=== PATIENT | female | born 1980 | race Caucasian/White ===

== ENCOUNTER 2022-02-15 14:26 | Emergency (ER) | payer BC, SELFPAY ==
--- NOTE | ~2022-02-15 | XR_ITS ---
EXAMINATION: XR chest 2V Exam Date/Time: 02/15/2022 15:10 CDT HISTORY: SOB,STERNAL CP WORSE WITH INSPIRATION SINCE 02/09 Comparison: 10/19/2017. RESULT: Lines, tubes, and devices: None. Lungs and pleura: Clear. Cardiomediastinal silhouette: Stable cardiomediastinal silhouette. Other: No acute osseous or upper abdominal finding. IMPRESSION: No acute cardiopulmonary process. Reviewed, dictated and finalized at location K.
[2022-02-15 14:30] VITALS: BP 158/82; PULSE 88; RESP 14; TEMP 36.6; O2SAT 100
--- NOTE | 2022-02-15 14:33 | ECG_ITS ---
Measurements Intervals [place] Rate: 83 P: 61 NE: 153 QRS: 39 QRSD: 110 T: 61 QT: 375 QTc: 442 Interpretive Statements SINUS RHYTHM NORMAL ELECTROCARDIOGRAM NO PREVIOUS ECG AVAILABLE FOR COMPARISON Electronically Signed On 02-16-2022 7:09:05 CDT by Aston Jimenez M.D.
[2022-02-15 14:54] VITALS: PULSE 91
[2022-02-15 14:56] LABS: Alanine Aminotransferase 19 U/L (6-35); Albumin Level 4.2 g/dL (3.5-5.1); Alkaline Phosphatase 89 U/L (38-126); Anion Gap 5 mmol/L (8-16); Aspartate Amino Transferase 21 U/L (14-36); Bilirubin,Total 0.1 mg/dL (0.2-1.3); Blood Urea Nitrogen 14 mg/dL (7-17); Carbon Dioxide 26 mmol/L (22-30); Chloride 107 mmol/L (98-107); Estimated CRCL calculation 136 ml/min; Estimated Glomerular Filt Rate > 60; Glucose 100 mg/dL (65-110); Lipase 145 U/L (23-300); Potassium 4.1 mmol/L (3.4-5.0); Sodium 138 mmol/L (137-145)
[2022-02-15 14:57] LABS: Basophils Absolute Auto 0.1 K/mm3 (0.0-0.1); Basophils Percent Auto 0.6 % (0.2-1.2); Eosinophils Absolute Auto 0.1 K/mm3 (0-0.3); Eosinophils Percent Auto 1.2 % (0-4.4); Hematocrit 40.3 % (37.0-47.0); Hemoglobin 13.1 g/dL (12.0-15.0); Immature Granulocyte Absolute 0.01 K/mm3 (0.00-0.031); Immature Granulocyte Percent A 0.1 % (0-0.5); Lymphocytes Absolute Auto 1.53 K/mm3 (0.9-3.2); Lymphocytes Percent Auto 17.7 % (18.3-44.2); Mean Corpuscular HGB Conc 32.5 g/dl (32-36); Mean Corpuscular Hemoglobin 29.8 pg (26-34); Mean Corpuscular Volume 91.8 fl (80-100); Mean Platelet Volume 10.4 fl (7.4-10.4); Monocytes Absolute Auto 0.7 K/mm3 (0.1-0.6); Monocytes Percent Auto 8.1 % (2.6-8.5); Neutrophils Absolute Auto 6.2 K/mm3 (1.3-6.7); Neutrophils Percent Auto 72.3 % (45.5-73.1); Platelet Count Result 259 k/mm3 (150-375); Red Blood Count 4.39 M/mm3 (4.2-5.4); Red Cell Distribution Width 13.8 % (11.5-14.5); White Blood Count 8.6 K/mm3 (4.5-10.0)
[2022-02-15 15:01] LABS: INR 0.9; Prothrombin Time 12.2 Seconds (11.1-14.7)
[2022-02-15 15:02] LABS: Partial Thromboplastin Time 29.3 SECONDS (22.3-36.8)
[2022-02-15 15:07] LABS: Troponin I < 0.012 ng/mL (0.000-0.034)
--- NOTE | 2022-02-15 15:31 | PC.NURSE ---
pt denied need for toradol, provider aware
[2022-02-15 15:41] LABS: D Dimer < 0.27 ug/mL (<0.48)
--- NOTE | 2022-02-15 15:55 | ED.CHESTPAIN ---
HPI - Chest Pain General Chief Complaint: Chest Pain Stated Complaint: chest pain since Thursday Time Seen by Provider: 02/15/22 14:43 Source: RN notes reviewed History of Present Illness HPI narrative: Patient presents emergency department from home for chest pain. Patient states pain is located to the midsternal chest and radiates through to the back. The pain is described as sharp and stabbing. Pain is because when she takes a deep inspiration or when she rotates the torso she notes no pain at rest the pain is been present for the past 6 days she denies any fevers or chills states occasionally she does feel short of breath that she feels she cannot take a deep breath because of the pain she denies any abdominal pain nausea vomiting diarrhea or any other symptoms Related Data Home Medications Medication Instructions Recorded Confirmed telmisartan 40 mg tablet tablet 02/15/22 Allergies Allergy/AdvReac Type Severity Reaction Status Date / Time No Known Allergies Allergy Unverified 03/28/19 18:41 Review of Systems Review of Systems: Gen.: Denies fevers or chills ENT: Denies congestion Respiratory: Reports shortness of breath with chest pain CV: See HPI GI: Denies abdominal pain nausea, emesis or diarrhea Musculoskeletal: Denies back pain or muscle pain Neuro: Denies numbness, tingling, weakness or focal weakness Skin: Denies rash Except as documented, all other systems reviewed and negative [facility] Past Medical History Medical History (Updated 02/15/22 @ 18:09 by Magdy Fu DO) Patient denies significant medical history Family History Family History (Updated 04/20/14 @ 07:13 by DOCTOR UNKNOWN) Father Hypertension Sibling Hypertension Family history of colitis, Onset Age: 23 Social History Social History Smoking status: Never smoker Smoking end date: 08/24/00 Alcohol intake: current Exam Narrative: APPEARANCE: No acute distress, nontoxic, resting in bed EYES: EOMI HEENT: Normocephalic, atraumatic, OMM RESPIRATORY: No respiratory distress Clear to auscultation bilaterally with no rhonchi wheezing or rales. CARDIOVASCULAR: Regular rate and rhythm without murmurs rubs or gallops. Chest: Tender palpation over the anterior chest wall in the regions of ribs 6 through 8 bilaterally corresponding back tenderness please see back exam pain increased with deep inspiration and slight motion pain resolves at rest and only comes back with deep inspiration and movement of the torso ABDOMINAL: Soft, nontender, nondistended, no rebound or guarding MUSCULOSKELETAl: Moves all extremities. No clubbing, cyanosis or edema. Back no midline thoracic lumbar transfer patient tender palpation of bilateral [place]ee muscles T4-8 NEURO: Awake and alert. Following commands, speech normal, no focal deficits SKIN:: Warm, dry. No rashes lesions or abrasions PSYCHIATRIC: Normal affect/mood, Course Course Emergency Course: Discussed with patient results of workup and diagnosis. Discussed need for follow-up with primary care, proper use of medication, and reasons to return to the emergency department. Patient understands and agrees to current treatment plan Vital Signs Vital signs: Vital Signs Temperature 97.9 F 02/15/22 14:30 Pulse Rate 88 02/15/22 14:30 Respiratory Rate 14 02/15/22 14:30 Blood Pressure 158/82 H 02/15/22 14:30 Pulse Oximetry 100 02/15/22 14:30 Oxygen Delivery Room Air 02/15/22 14:30 Temperature 97.9 F 02/15/22 14:30 Pulse Rate 78 02/15/22 16:02 Respiratory Rate 16 02/15/22 16:02 Blood Pressure 144/86 H 02/15/22 16:02 Pulse Oximetry 98 02/15/22 16:02 Oxygen Delivery Room Air 02/15/22 14:30 MDM - Chest Pain MDM Narrative Medical decision making narrative: Patient's EKGs and labs are without significant high risk changes. Cardiac risk factors reviewed. Patient is felt likely low risk for ACS and
[2022-02-15 16:01] VITALS: PULSE 78
[2022-02-15 16:02] VITALS: BP 144/86; PULSE 78; RESP 16; O2SAT 98
[2022-02-15 17:57] LABS: Troponin I < 0.012 ng/mL (0.000-0.034)
== END 2022-02-15 18:15 | disposition home or self-care (01) ==
PROVIDERS: Emergency Medicine; Emergency Provider Emergency Medicine; PCP Family Medicine
DX: R07.89 Other chest pain (principal)
CPT/HCPCS: 36415; 71046; 80053; 83690; 84484; 85025; 85380; 85610; 85730; 93005; 99284

== ENCOUNTER 2024-03-20 14:25 | Emergency (ER) | payer BC, SELFPAY ==
[2024-03-20 14:44] VITALS: BP 156/96; PULSE 88; RESP 17; TEMP 36.9; O2SAT 100
--- NOTE | 2024-03-20 15:18 | PC.NURSE ---
Pt angrily approached triage desk, asking how long it would be before she is seen. This RN stated that I did not have an exact time frame. Pt stated she needed her IV out and would go be seen somewhere else. IV removed with tip intact. Pt ambulated to ED exit with steady gait and no signs for concern at this time.
== END 2024-03-20 15:52 | disposition left against medical advice (07) ==
PROVIDERS: PCP Family Medicine
DX: S61.502A Unspecified open wound of left wrist, initial encounter (principal)
CPT/HCPCS: 99199